=== PATIENT | male | born 1995 | race Hispanic/Latino ===

== ENCOUNTER 2018-07-08 14:34 | Emergency (ER) | payer BC, SELFPAY ==
[2018-07-08] MEDS ORDERED: Ibuprofen 200 MG TAB ONE (15:22)
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
== END 2018-07-08 15:59 | disposition home or self-care (01) ==
LOC: ERS 14:34
DX: S63.501A Unspecified sprain of right wrist, initial encounter (principal); F17.210 Nicotine dependence, cigarettes, uncomplicated; Y04.8XXA Assault by other bodily force, initial encounter

== ENCOUNTER 2018-10-28 08:03 | Emergency (ER) | payer SELFPAY ==
[2018-10-28 08:43] LABS: #Lymphocytes 2.7 thou/uL (1.20-3.40); #Monocytes 0.7 thou/uL (0.11-0.59); #Neutrophils 7.7 thou/uL (1.40-6.50); %Basophils 0.3 % (0.0-1.0); %Eosinophils 0.3 % (0.0-10.0); %Lymphocytes 24.2 % (21.0-51.0); %Monocytes 6.5 % (0.0-10.0); %Neutrophils 68.8 % (42.0-75.0); Hemoglobin 14.2 g/dL (14.0-18.0); Mean Corpuscular HGB CONC 33.3 g/dL (32.0-36.0); Platelet Count 174 thou/uL (130-400); RBC Distribution Width 13.2 % (11.5-14.5); Red Blood Cell (RBC) Count 5.06 mill/uL (4.70-6.10); White Blood Cell (WBC) Count 11.2 thou/uL (4.8-10.8)
[2018-10-28 09:03] LABS: Acetaminophen Less than 6.0 mcg/mL (10.0-30.0); Alcohol 128 mg/dL (Less than 10); Salicylate Less than 8.0 mg/dL (15.0-30.0)
[2018-10-28 09:04] LABS: ALT (SGPT) 19 U/L (8-55); AST (SGOT) 23 U/L (5-34); Albumin 4.5 g/dL (3.5-5.0); Alkaline Phosphatase 92 U/L (40-150); Anion Gap 15 mmol/L (10-20); BUN (Urea Nitrogen) 8 mg/dL (8.9-20.6); Bilirubin, Total 0.4 mg/dL (0.2-1.2); Calc. Creatinine Clearance 0 mL/min (70-130); Calcium 9.5 mg/dL (7.8-10.44); Carbon Dioxide 24 mmol/L (22-29); Chloride 104 mmol/L (98-107); Estimated GFR-MDRD Greater than 90; Globulin 3.2 g/dL (2.4-3.5); Glucose 100 mg/dL (70-105); Potassium 3.9 mmol/L (3.5-5.1); Protein, Total 7.7 g/dL (6.0-8.3); Sodium 139 mmol/L (136-145)
--- NOTE | 2018-10-28 09:18 | CT ---
HEAD CT WITHOUT CONTRAST: Date: 10/28/18 HISTORY: Tremor. COMPARISON: None. FINDINGS: No parenchymal hemorrhage. No extra-axial hematoma. No midline shift. Basilar cisterns are patent. Br ain volume is age-appropriate. Cortical edward-white matter differentiation preserved. No evidence of h ydrocephalus. Adequate aeration of the sinuses and mastoid air cells. Calvarium is intact. IMPRESSION: No acute intracranial process. POS: [facility]
[2018-10-28] MEDS ORDERED: Lorazepam 2 MG/ML VIAL ONE (09:56)
[2018-10-28 09:58] LABS: Bilirubin Negative (Negative); Blood, Urine Negative (Negative); Clarity CLEAR (Clear); Glucose, Urine (Dipstick) Negative (Negative); Leukocyte Negative (Negative); Nitrite Negative (Negative); Protein, Urine (Dipstick) Negative (Neg-Trace); Urobilinogen 0.2 mg/dL (0.2-1.0)
[2018-10-28 10:09] LABS: Amphetamine Not Detected (NotDetected); Barbiturates Screen Not Detected (NotDetected); Benzodiazepine Screen Not Detected (NotDetected); Cocaine Metabolite Screen Detected (NotDetected); Medtox Reader # READER 1; Methadone Not Detected (NotDetected); Methamphetamine Not Detected (NotDetected); Opiate Screen Not Detected (NotDetected); Oxycodone Screen Not Detected (NotDetected); Phencyclidine (PCP) Not Detected (NotDetected); THC/Cannabinoid Screen Not Detected (NotDetected); Tricyclic Screen Not Detected (NotDetected)
[2018-10-28 10:10] LABS: Medtox Control Line Valid? VALID (VALID)
--- NOTE | 2018-10-28 10:53 | RAD ---
PORTABLE CHEST: Date: 10/28/18 HISTORY: Chest pain. FINDINGS: Heart size and mediastinum are within normal limits. Lungs are clear of infiltrates. There are no sig nificant bony findings. IMPRESSION: No active intrathoracic disease. POS: [facility]
== END 2018-10-28 10:45 | disposition home or self-care (01) ==
LOC: ERS 08:03
DX: F10.129 Alcohol abuse with intoxication, unspecified (principal); F14.90 Cocaine use, unspecified, uncomplicated; R25.1 Tremor, unspecified; F17.210 Nicotine dependence, cigarettes, uncomplicated; Y90.6 Blood alcohol level of 120-199 mg/100 ml
CPT/HCPCS: 70450; 71045; 80053; 80306; 80307; 81003; 82550; 84484; 85025; 93005; 96361; 96374; J2060

== ENCOUNTER 2019-10-16 14:26 | Emergency (ER) | payer OTHER, SELFPAY ==
[2019-10-17 12:47] LABS: SARS-CoV-2 MS2 Positive; SARS-CoV-2 N Gene Negative; SARS-CoV-2 S Gene Negative; SARS-CoV-2 orf1ab Negative
== END 2019-10-16 15:17 | disposition home or self-care (01) ==
LOC: ERS 14:26
DX: Z20.828 Contact with and (suspected) exposure to other viral communicable diseases (principal); F17.210 Nicotine dependence, cigarettes, uncomplicated
CPT/HCPCS: 87635; 99283; U0003

== ENCOUNTER 2020-08-10 05:40 | Emergency (ER) | payer OTHER, SELFPAY ==
[2020-08-10] MEDS ORDERED: Lidocaine 1% w/Epinephrine 1:100K 20 ML VIAL ONE (06:49)
[2020-08-10] MEDS ORDERED: Ibuprofen 200 MG TAB ONE ×2 (06:52→06:55)
== END 2020-08-10 08:18 | disposition home or self-care (01) ==
LOC: ERS 05:40
DX: S51.811A Laceration without foreign body of right forearm, initial encounter (principal); F17.210 Nicotine dependence, cigarettes, uncomplicated; W01.0XXA Fall on same level from slipping, tripping and stumbling without subsequent striking against object, initial encounter
CPT/HCPCS: 12004

== ENCOUNTER 2020-10-18 00:57 | Observation (INO) | payer SELFPAY ==
[2020-10-18] MEDS ORDERED: Cefepime 2 GM VIAL ONE (02:21)
[2020-10-18] MEDS ORDERED: Sodium Chloride 0.9% 100 ML ONE (02:21)
[2020-10-18] MEDS ORDERED: VANCOMYCIN 2 GRAM/400 ML BAG 2 GM in Premix Bag 1 BAG IVPB SCH (02:30)
[2020-10-18 02:34] LABS: #Basophils 0.1 thou/uL (0.0-0.2); #Eosinphils 0.1 thou/uL (0.0-0.7); #Lymphocytes 3.2 thou/uL (1.20-3.40); #Monocytes 0.7 thou/uL (0.11-0.59); #Neutrophils 5.2 thou/uL (1.40-6.50); %Basophils 0.7 % (0.0-1.0); %Eosinophils 1.3 % (0.0-10.0); %Lymphocytes 34.3 % (21.0-51.0); %Monocytes 7.8 % (0.0-10.0); %Neutrophils 55.9 % (42.0-75.0); Hemoglobin 14.9 g/dL (14.0-18.0); Mean Corpuscular Hemoglobin 28.6 pg (27.0-31.0); Mean Corpuscular Volume 84.1 fL (78.0-98.0); Mean Platelet Volume 7.9 fL (7.4-10.4); Platelet Count 194 thou/uL (130-400); RBC Distribution Width 12.7 % (11.5-14.5); White Blood Cell (WBC) Count 9.4 thou/uL (4.8-10.8)
[2020-10-18 02:55] LABS: ALT (SGPT) 16 U/L (8-55); AST (SGOT) 18 U/L (5-34); Albumin 4.4 g/dL (3.5-5.0); Alkaline Phosphatase 80 U/L (40-110); Anion Gap 15 mmol/L (10-20); BUN (Urea Nitrogen) 12 mg/dL (8.9-20.6); Bilirubin, Total 0.3 mg/dL (0.2-1.2); Calc. Creatinine Clearance 0 mL/min (70-130); Carbon Dioxide 22 mmol/L (22-29); Chloride 106 mmol/L (98-107); Globulin 3.2 g/dL (2.4-3.5); Glucose 104 mg/dL (70-105); Protein, Total 7.6 g/dL (6.0-8.3); Sodium 139 mmol/L (136-145)
[2020-10-18] MEDS ORDERED: Morphine 2 MG/ML VIAL SLOW IVP PRN (04:18)
[2020-10-18] MEDS ORDERED: Labetalol HCl 100 MG/20 ML VIAL SLOW IVP PRN (04:18)
[2020-10-18] MEDS ORDERED: Promethazine HCl 12.5 MG in Sodium Chloride 0.9% 50 ML IVPB PRN (04:18)
[2020-10-18] MEDS ORDERED: hydrALAZINE 20 MG/ML VIAL SLOW IVP PRN (04:18)
[2020-10-18] MEDS ORDERED: Ondansetron PF 4 MG/2 ML Vial IVP PRN (04:18)
[2020-10-18] MEDS ORDERED: Acetaminophen 325 MG TAB PO PRN (04:18)
[2020-10-18] MEDS ORDERED: cloNIDine 0.1 MG TAB PO PRN (04:18)
[2020-10-18] MEDS ORDERED: HYDROcodone/Acetaminophen 5/325 mg Tablet PO PRN (04:18)
[2020-10-18] MEDS ORDERED: Melatonin 3 MG TAB PO PRN (04:18)
[2020-10-18] MEDS ORDERED: Ketorolac Tromethamine 30 MG/ML VIAL ONE (04:24)
[2020-10-18] MEDS ORDERED: Ibuprofen 200 MG TAB PO PRN (04:25)
[2020-10-18] MEDS ORDERED: Electrolyte Replacement Protocol 1 EACH FS SCH (04:30)
[2020-10-18 05:11] VITALS: BMI 25.7
[2020-10-18] MEDS: cefTRIAXone\\ROCEPHIN 2 GM in Sodium Chloride 0.9% 100 ML IVPB SCH (05:55)
[2020-10-18] MEDS: Sodium Chloride 0.9% 1,000 ML IV SCH ×2 (05:55→16:24)
[2020-10-18 06:35] LABS: SARS-CoV-2 NAA Rapid Test Not Detected (NotDetected)
[2020-10-18] MEDS: Famotidine 20 MG TAB PO SCH ×2 (09:18→23:03)
[2020-10-18] MEDS ORDERED: Magnevist 469MG/ML 20 ML VIAL ONE (11:53)
[2020-10-18] MEDS: Polyethylene Glycol 3350 17 GM Packet PO SCH (16:19)
[2020-10-18] MEDS: Vancomycin 1 GM in Premix Bag 1 BAG IVPB SCH (16:24)
[2020-10-18] MEDS ORDERED: Bupivacaine 0.25% HCL 30 ML VIAL ONE (18:33)
[2020-10-18] MEDS ORDERED: Bacitracin Zinc Ointment 30 gm TUBE ONE (18:33)
[2020-10-18] MEDS ORDERED: Neomycin-Polymyxin 1 ML AMP ONE (18:34)
[2020-10-18] MEDS ORDERED: Sodium Chloride 0.9% 10 ML ONE (19:06)
[2020-10-18] MEDS ORDERED: Fentanyl 100 MCG/2 ML VIAL ONE (19:14)
[2020-10-18] MEDS ORDERED: Midazolam HCl 2 mg/2 ml Vial ONE (19:14)
[2020-10-18] MEDS ORDERED: Ondansetron PF 4 MG/2 ML Vial ONE (19:25)
[2020-10-18] MEDS ORDERED: Dexamethasone 20 MG/5 ML VIAL ONE (19:25)
[2020-10-18] MEDS ORDERED: Lidocaine 1% PF 5 ML VIAL ONE (19:25)
[2020-10-18] MEDS ORDERED: PROPOFOL 200 MG/20 ML VIAL ONE (19:25)
[2020-10-18] MEDS ORDERED: Promethazine HCl 25 MG/ML VIAL IM PRN (20:42)
[2020-10-18] MEDS ORDERED: Promethazine HCl 25 MG/ML VIAL IVPB PRN (20:42)
[2020-10-18] MEDS ORDERED: Meperidine HCl/PF 25 MG/ML VIAL SLOW IVP PRN (20:42)
[2020-10-18] MEDS ORDERED: HYDROmorphone 2 MG/ML VIAL SLOW IVP PRN (20:42)
[2020-10-18] MEDS ORDERED: Ondansetron HCl/PF 4 MG/2 ML Vial IVP PRN (20:42)
[2020-10-18] MEDS ORDERED: Morphine 4 MG/ML VIAL SLOW IVP PRN (22:18)
[2020-10-18] MEDS ORDERED: HYDROcodone/Acetaminophen 7.5/325 mg Tablet PO PRN (22:20)
[2020-10-18] MEDS ORDERED: CEFAZOLIN 1 GM in Sodium Chloride 0.9% 100 ML IVPB SCH (23:59)
[2020-10-19] MEDS: Ketorolac Tromethamine 30 MG/ML VIAL IVP SCH ×4 (01:53→18:30)
[2020-10-19] MEDS: ceFAZolin 1 GM/D5W 1 GM in Premix Bag 1 BAG IVPB SCH ×3 (01:54→15:27)
[2020-10-19] MEDS: Sodium Chloride 0.9% 1,000 ML IV SCH ×3 (02:04→19:20)
[2020-10-19] MEDS: Vancomycin 1 GM in Premix Bag 1 BAG IVPB SCH ×2 (03:36→17:50)
[2020-10-19 05:50] LABS: #Lymphocytes 1.3 thou/uL (1.20-3.40); #Monocytes 0.5 thou/uL (0.11-0.59); #Neutrophils 11.1 thou/uL (1.40-6.50); %Eosinophils 0.1 % (0.0-10.0); %Lymphocytes 10.1 % (21.0-51.0); %Monocytes 3.8 % (0.0-10.0); %Neutrophils 85.9 % (42.0-75.0); Hemoglobin 13.4 g/dL (14.0-18.0); Mean Corpuscular HGB CONC 31.8 g/dL (32.0-36.0); Mean Corpuscular Hemoglobin 27.4 pg (27.0-31.0); Platelet Count 178 thou/uL (130-400); RBC Distribution Width 12.5 % (11.5-14.5); Red Blood Cell (RBC) Count 4.89 mill/uL (4.70-6.10); White Blood Cell (WBC) Count 12.9 thou/uL (4.8-10.8)
[2020-10-19 06:09] LABS: Anion Gap 13 mmol/L (10-20); BUN (Urea Nitrogen) 16 mg/dL (8.9-20.6); Calc. Creatinine Clearance 86 mL/min (70-130); Calcium 8.3 mg/dL (7.8-10.44); Carbon Dioxide 21 mmol/L (22-29); Chloride 107 mmol/L (98-107); Glucose 158 mg/dL (70-105); Magnesium 1.7 mg/dL (1.6-2.6); Potassium 4.2 mmol/L (3.5-5.1); Sodium 137 mmol/L (136-145)
[2020-10-19] MEDS ORDERED: Magnesium 2 GM/50 ML 2 GM in Premix Bag 1 BAG IVPB SCH (06:15)
[2020-10-19] MEDS: cefTRIAXone\\ROCEPHIN 2 GM in Sodium Chloride 0.9% 100 ML IVPB SCH (06:30)
[2020-10-19] MEDS: Famotidine 20 MG TAB PO SCH (10:30)
[2020-10-19] MEDS: Heparin 5,000 UNITS/ML VIAL SC SCH ×2 (10:31→18:30)
[2020-10-19] MEDS: Polyethylene Glycol 3350 17 GM Packet PO SCH (10:32)
[2020-10-19 14:36] LABS: Vancomycin, Trough 6.8 ug/mL
[2020-10-19 18:28] VITALS: BP 112/66; TEMP 98.7
== END 2020-10-19 19:21 | disposition home or self-care (01) ==
LOC: ERS 00:57 → SURG A 03:17
PROVIDERS: ADMIT Internal Medicine; ATTEND Internal Medicine
PROC: 0RQU0ZZ Repair Right Metacarpophalangeal Joint, Open Approach (ICD-10-PCS; principal; 2020-10-18)
DX: S63.652A Sprain of metacarpophalangeal joint of right middle finger, initial encounter (principal); S60.221A Contusion of right hand, initial encounter; M67.843 Other specified disorders of tendon, right hand; L03.113 Cellulitis of right upper limb; F17.210 Nicotine dependence, cigarettes, uncomplicated; Z79.2 Long term (current) use of antibiotics; Z20.822 Contact with and (suspected) exposure to COVID-19
CPT/HCPCS: 36415; 80048; 80053; 80202; 83735; 85025; 85652; 86140; 96365; 96366; 96367; 96375; 96376; A9579; G0378; J0690; J0692; J0696; J1644; J1885; J2250; J3010; J3370; J3475; J3490; S0020; U0002; U0005

== ENCOUNTER 2021-05-28 22:06 | Emergency (ER) | payer SELFPAY | END 2021-05-28 23:35 | disposition home or self-care (01) | LOC: ERS 22:06 | DX: L25.9 Unspecified contact dermatitis, unspecified cause (principal) | CPT/HCPCS: 99283 ==

== ENCOUNTER 2021-08-30 12:16 | Emergency (ER) | payer SELFPAY ==
[2021-08-30] MEDS ORDERED: diphenhydrAMINE 50 MG/ML VIAL ONE (12:38)
[2021-08-30] MEDS ORDERED: Dexamethasone 10 MG/ML VIAL ONE (12:41)
== END 2021-08-30 14:33 | disposition home or self-care (01) ==
LOC: ERS 12:16
DX: L23.5 Allergic contact dermatitis due to other chemical products (principal)
CPT/HCPCS: 96374; 96375; J1100; J1200

== ENCOUNTER 2022-04-21 20:11 | Emergency (ER) | payer SELFPAY ==
[2022-04-21] MEDS ORDERED: Metoclopramide HCl 10 MG TAB ONE (23:26)
[2022-04-21] MEDS ORDERED: Ketorolac Tromethamine 30 MG/ML VIAL ONE (23:26)
[2022-04-21 23:28] LABS: SARS-CoV-2 NAA Rapid Test Not Detected (NotDetected)
== END 2022-04-21 23:47 | disposition home or self-care (01) ==
LOC: ERS 20:11
DX: R51.9 Headache, unspecified (principal); Z20.822 Contact with and (suspected) exposure to COVID-19; Z87.891 Personal history of nicotine dependence
CPT/HCPCS: 70450; 96372; J1885

== ENCOUNTER 2024-05-22 08:40 | Emergency (ER) | payer SELFPAY | END 2024-05-22 09:10 | disposition home or self-care (01) | LOC: ERS 08:40 | DX: S43.402A Unspecified sprain of left shoulder joint, initial encounter (principal); Z02.89 Encounter for other administrative examinations; V49.9XXA Car occupant (driver) (passenger) injured in unspecified traffic accident, initial encounter; W22.11XA Striking against or struck by driver side automobile airbag, initial encounter | CPT/HCPCS: 99283 ==

== ENCOUNTER → 2024-12-03 | Emergency (ER) | payer SELFPAY ==
[~2024-12-03] MED LIST: Dexamethasone 10 MG/ML VIAL ONE; Ketorolac Tromethamine 30 MG (1 mL) VIAL ONE
[2024-12-03 16:44] LABS: #Basophils 0.06 10x3/uL (0.0-0.2); #Eosinophils 0.83 10x3/uL (0.0-0.7); #Monocytes 0.84 10x3/uL (0.11-0.59); #Neutrophils 6.27 10x3/uL (1.40-6.50); %Basophils 0.6 % (0.0-1.0); %Eosinophils 7.8 % (0.0-10.0); %Lymphocytes 24.2 % (21.0-51.0); %Monocytes 7.9 % (0.0-10.0); %Neutrophils 59.3 % (42.0-75.0); Hematocrit 46.1 % (42.0-52.0); Hemoglobin 15.1 g/dL (14.0-18.0); Mean Corpuscular Hemoglobin 26.8 pg (27.0-31.0); Mean Corpuscular Volume 81.7 fL (78.0-98.0); Platelet Count 225 10x3/uL (130-400); Red Blood Cell (RBC) Count 5.64 mill/uL (4.70-6.10); White Blood Cell (WBC) Count 10.58 10x3/uL (4.8-10.8)
[2024-12-03 17:05] LABS: ALT (SGPT) 18 U/L (Less than 45); AST (SGOT) 20 U/L (11-34); Albumin 4.4 g/dL (3.1-4.5); Alkaline Phosphatase 100 U/L (40-110); Anion Gap 15 mmol/L (10-20); BUN (Urea Nitrogen) 14 mg/dL (8.9-20.6); Bilirubin, Total 0.6 mg/dL (0.3-1.2); Calc. Creatinine Clearance 0 mL/min (70-130); Calcium 9.4 mg/dL (7.8-10.44); Carbon Dioxide 23 mmol/L (22-29); Chloride 105 mmol/L (98-107); Globulin 3.9 g/dL (2.4-3.5); Glucose 93 mg/dL (70-105); Lipase 26 U/L (8-78); Potassium 4.1 mmol/L (3.5-5.1); Sodium 139 mmol/L (136-145)
== END ==
LOC: ERS 15:07
DX: B34.9 Viral infection, unspecified (principal)
CPT/HCPCS: 36415; 80053; 82550; 83690; 85025; 87428; 96372; 99283; J1100; J1885